=== PATIENT | female | born 1985 | race Hispanic/Latino ===

== ENCOUNTER 2021-07-06 20:00 | Emergency (ER) | payer MEDICAID ==
[~2021-07-06] VITALS: Ht 160 cm; Wt 108.9 kg
[2021-07-06 20:34] VITALS: BP_SYST 136; BP_DIAS 60; BP_DIAS 74
== END 2021-07-06 23:58 | disposition left against medical advice (07) ==
LOC: EDH 20:00
DX: R05 Cough (principal); Z53.21 Procedure and treatment not carried out due to patient leaving prior to being seen by health care provider